=== PATIENT | female | born 1950 | race Caucasian/White ===

== ENCOUNTER 2020-03-17 09:15 | Emergency (ER) | payer OTHER, SELFPAY ==
[2020-03-17 09:24] VITALS: BP 156/87; PULSE 108; RESP 18; TEMP 36.6; O2SAT 95; BMI 30.9
--- NOTE | 2020-03-17 09:25 | CT_ITS ---
EXAMINATION: CT abdomen pelvis w con CLINICAL INFORMATION: Reason for Exam L flank pain, LLQ pain COMPARISON: No prior CT available for comparison. TECHNIQUE: Multidetector volumetric imaging was performed from the superior aspect of the liver through the pubic symphysis 85 mL Omnipaque 350 injected. Sagittal and coronal reformatted images were obtained on the technologist's workstation. This CT examination was performed using dose optimization techniques as appropriate, variously including the following: *Automated exposure control *Adjustment of mA and/or kV according to patient size (this includes techniques or standardized protocols for targeted exams where dose is matched to indication/reason for exam; i.e. extremities or head) *Use of iterative reconstruction technique DLP: 742 mGy-cm FINDINGS: LOWER THORAX: Included lung bases are clear. HEPATOBILIARY: No focal hepatic lesions. No biliary ductal dilatation. GALLBLADDER: There are small gallstones. SPLEEN: Spleen is normal in size. PANCREAS: No focal mass or ductal dilatation. STOMACH AND GASTROINTESTINAL TRACT: Stomach is grossly unremarkable. There is sigmoid diverticulosis without CT evidence of acute diverticulitis. No CT evidence of appendicitis. There is soft tissue opacity protruding from the posterior wall of the distal rectum measure up to 1.8 cm, although could be adherent stool, cannot rule out rectal lesion. This may require further investigation with colonoscopy. ADRENALS: No adrenal nodules. KIDNEYS/URETERS: Mild bilateral perinephric fat stranding, nonspecific, cannot rule out mild nephritis, there is a 5 mm nonobstructing stone upper calyx left kidney. There is no hydronephrosis. URINARY BLADDER: There is air bubble floating within the urinary bladder, which could be from prior instrumentation versus gas forming bacteria. I.e. cystitis. PELVIC VISCERA: Unremarkable PERITONEUM: No free air or fluid. LYMPH NODES: No lymphadenopathy. VASCULAR:Abdominal aorta is heavily calcified, there is saccular annular bulge measuring 2.6 cm. BONES, ABDOMINAL WALL AND SOFT TISSUES: Age-appropriate changes of the spine and skeletal system, no destructive osteolytic or osteosclerotic bone lesion found CT/CT abdomen pelvis w con IMPRESSION: 1. Bilateral mild perinephric fat stranding although nonspecific, cannot rule out mild nephritis. 2. There is 5 mm nonobstructing stone left kidney. 3. There is a floating air bubble within the urinary bladder, which could be from prior instrumentation, there is mild thickening of the urinary bladder wall, cannot rule out gas forming bacteria cystitis. Please correlate with patient's clinical symptoms and laboratory data. 4. Diverticulosis without evidence of diverticulitis. 5. Gallstone. 6. 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 7. There is soft tissue filling defect within the distal rectum abutting the posterior wall concerning for possible impacted adherent stool VERSUS RECTAL LESION. Attention to correlation with RECTAL DIGITAL EXAM OR SIGMOIDOSCOPY. (Referring physician staff is being called, to be alerted of the above findings and recommendations.) TC
--- NOTE | 2020-03-17 09:25 | ECG_ITS ---
Test Reason : SIDE PAIN Blood Pressure : / mmHG Vent. Rate : 073 BPM Atrial Rate : 073 BPM P-R Int : 154 ms QRS Dur : 084 ms QT Int : 440 ms P-R-T Axes : 073 088 067 degrees QTc Int : 484 ms Normal sinus rhythm Possible Left atrial enlargement Borderline ECG No previous ECGs available Referred By: Maria Guadalupe Longo Electronically Signed By:Lee Richardson
--- NOTE | 2020-03-17 09:26 | ED.ABDPAIN ---
HPI - Abdominal Pain General Chief Complaint: Abdominal Pain Stated Complaint: BODY PAIN Time Seen by Provider: 03/17/20 09:25 Source: patient Mode of arrival: ambulatory Limitations: no limitations History of Present Illness MD elicited complaint: abdominal pain and flank pain Pertinent past history: kidney stones Onset (ago): day(s) (3) Pain Consistency: constant Location: LLQ, L flank and other (back) Severity: moderate Quality: stabbing and aching Radiation: LLQ Migration to: no migration Exacerbating factors: movement Relieving factors: nothing Context: other (no injury reported, no b/b incontinence, no saddle anesthesia) Associated symptoms: nausea Related Data Previous Rx's Medication Instructions Recorded cefuroxime axetil 500 mg PO BID 7 Days #14 tab 03/17/20 cyclobenzaprine 10 mg PO TID PRN #20 tab 03/17/20 hydrocodone-acetaminophen 1 tab PO Q6H PRN #15 tab 03/17/20 lidocaine 1 patch TOPICAL DAILY PRN #10 ea 03/17/20 ondansetron 4 mg PO Q8H PRN #20 tab 03/17/20 Allergies Allergy/AdvReac Type Severity Reaction Status Date / Time No Known Allergies Allergy Verified 03/17/20 09:25 Review of Systems Review of Systems Constitutional : No Weight loss, No Fever, No Chills ENT/Mouth : No sore throat, No Rhinorrhea Eyes: No Swelling, No Redness Cardiovascular : No Chest Pain, No SOB, NoEdema Respiratory : No Cough, No Sputum, No Wheezing Gastrointestinal : Positive Nausea, no Vomiting, no Diarrhea, positive abdominal Pain, No Hematochezia, No Melena Genitourinary : pos Dysuria, No Urinary Frequency, No Hematuria, No Urgency Musculoskeletal : No joint pain, No Myalgias, No Joint Swelling Skin : No Skin Lesions, No rash Neuro : No Weakness, No Numbness, No Dizziness, No Headache Psych : No Anxiety/Panic, No Depression Heme/Lymph: No Bruising, No Lymphadenopathy Endocrine : No Polyuria, No Polydipsia All other systems reviewed and are negative. Physical Exam Vital Signs: Vital Signs: Last Vital Signs Temp 97.6 F 03/17/20 11:50 Pulse 69 03/17/20 11:50 Resp 16 03/17/20 11:50 BP 131/70 03/17/20 11:50 Pulse Ox 97 03/17/20 11:50 Body Mass Index 30.9 Appearance: Alert. Oriented X3. No acute distress. Eyes: Pupils equal, round and reactive to light. ENT: Pharynx normal. Neck: Normal inspection. Neck supple. CVS: Normal heart rate and rhythm. Pulses normal. Respiratory: No respiratory distress. Breath sounds normal. Abdomen: Soft and mild LLQ pain, L flank CVA ttp, no rebound or guarding Skin: Skin warm and dry. Normal skin color. Normal skin turgor. Extremities: No lower extremity edema. No calf ttp Neuro: Oriented X 3. No motor deficit. No sensory deficit. SILT inner thigh MDM - Abdominal Pain MDM Narrative Medical decision making narrative: 70 yo female with HTN, HPL, kidney stones, sciatica here with left flank pain radiating into LLQ has been in bed for days - could be sciatica has no b/b incontinence no saddle anesthesia no AC therapy SILT inner thigh will need labs, UA, IV pain medications, CT scan to evaluate for stone/diverticulitis, IV dilaudid for pain dispo per results and findings. Lab Data Result diagrams: 03/17/20 09:37 03/17/20 09:37 Labs: Lab Results 03/17/20 03/17/20 03/17/20 Range/Units 09:37 09:37 09:37 WBC 7.9 (4.8-10.8) X10*3/uL RBC 5.28 (4.20-5.50) X10*6/uL Hgb 16.1 H (12.0-16.0) g/dl Hct 47.8 H (37-47) % MCV 90.5 (80-98) fL MCH 30.5 (27.0-33.0) pg MCHC 33.7 (31.0-35.0) g/dl RDW 12.8 (11.0-16.0) % Plt Count 248 (160-400) X10*3/uL MPV 9.2 L (9.4-12.3) fL Immature Gran % (Auto) 0.3 (0.0-0.4) % Neut % (Auto) 77.2 H (45-73) % Lymph % (Auto) 13.9 L (20-40) % [place] % (Auto) 7.0 (2-11) % Eos % (Auto) 1.0 (0-4) % Baso % (Auto) 0.6 (0-2) % Lymph # (Auto) 1.1 L (1.2-4.9) X10*3/uL [place] # (Auto) 0.6 (0.1-1.2) X10*3/uL Eos # (Auto) 0.1 (0.0-0.4) X10*3/uL Baso # (Auto) 0.1 (0.0-0.2) X10*3/uL Abs Immat Gran (auto) 0.02 (0.00-0.03) X10*3/uL Absolute Neuts (auto) 6.1 (2.0-8.3) X10*3/uL Absolute Nucleated RBC 0.000 (0.0-0.012) X10*3/uL Nucleated RBC % (auto) 0.0 (0.0-0.2) /100WBC PT 11.8 (10.8-13.0) SEC INR 1.0 (0.9-1.1) APTT 32.2 (24.1-38.0) SEC Sodium 136 (135-145) mmol/L Potassium 3.9 (3.3-5.1) mmol/l Chloride 101 (96-108) mmol/L Carbon Dioxide 23 (22-29) mmol/L Anion Gap 16 (12-20) BUN 16 (9-16) mg/dL Creatinine 0.80 (0.5-1.4) mg/dL Estim Creat Clear Calc 66.6 Estimated GFR > 60 Random Glucose 161 H (60-115) mg/dL Lactic Acid (0.5-2.0) mmol/L Calcium 9.7 (8.4-10.2) mg/dL Magnesium 1.7 (1.6-2.6) mg/dL Total Bilirubin 0.6 (0.0-1.0) mg/dL Direct Bilirubin 0.2 (0.0-0.5) mg/dL AST 32 H (5-31) U/L ALT 29 (0-31) U/L Alkaline Phosphatase 76 (39-117) U/L Total Protein 7.9 (6.5-8.0) g/dL Albumin 4.5 (3.5-5.0) g/dL Lipase 19 (8-78) U/L Urine Color Urine Appearance Urine pH (5.0-8.0) Ur Specific [place] (1.005-1.025) Urine Protein (NEG-TRACE) MG/DL Urine Glucose (UA) (NEG) MG/DL Urine Ketones (NEG) MG/DL Urine Blood (NEG) Urine Nitrite (NEG) Ur Leukocyte Esterase (NEG) 03/17/20 03/17/20 Range/Units 09:37 13:19 WBC (4.8-10.8) X10*3/uL RBC (4.20-5.50) X10*6/uL Hgb (12.0-16.0) g/dl Hct (37-47) % MCV (80-98) fL MCH (27.0-33.0) pg MCHC (31.0-35.0) g/dl RDW (11.0-16.0) % Plt Count (160-400) X10*3/uL MPV (9.4-12.3) fL Immature Gran % (Auto) (0.0-0.4) % Neut % (Auto) (45-73) % Lymph % (Auto) (20-40) % [place] % (Auto) (2-11) % Eos % (Auto) (0-4) % Baso % (Auto) (0-2) % Lymph # (Auto) (1.2-4.9) X10*3/uL [place] # (Auto) (0.1-1.2) X10*3/uL Eos # (Auto) (0.0-0.4) X10*3/uL Baso # (Auto) (0.0-0.2) X10*3/uL Abs Immat Gran (auto) (0.00-0.03) X10*3/uL Absolute Neuts (auto) (2.0-8.3) X10*3/uL Absolute Nucleated RBC (0.0-0.012) X10*3/uL Nucleated RBC % (auto) (0.0-0.2) /100WBC PT (10.8-13.0) SEC INR (0.9-1.1) APTT (24.1-38.0) SEC Sodium (135-145) mmol/L Potassium (3.3-5.1) mmol/l Chloride (96-108) mmol/L Carbon Dioxide (22-29) mmol/L Anion Gap (12-20) BUN (9-16) mg/dL Creatinine (0.5-1.4) mg/dL Estim Creat Clear Calc Estimated GFR Random Glucose (60-115) mg/dL Lactic Acid 2.0 (0.5-2.0) mmol/L Calcium (8.4-10.2) mg/dL Magnesium (1.6-2.6) mg/dL Total Bilirubin (0.0-1.0) mg/dL Direct Bilirubin (0.0-0.5) mg/dL AST (5-31) U/L ALT (0-31) U/L Alkaline Phosphatase (39-117) U/L Total Protein (6.5-8.0) g/dL Albumin (3.5-5.0) g/dL Lipase (8-78) U/L Urine Color YELLOW Urine Appearance CLEAR Urine pH 6.5 (5.0-8.0) Ur Specific [place] <= 1.005 (1.005-1.025) Urine Protein NEG (NEG-TRACE) MG/DL Urine Glucose (UA) NEG (NEG) MG/DL Urine Ketones NEG (NEG) MG/DL Urine Blood NEG (NEG) Urine Nitrite NEG (NEG) Ur Leukocyte Esterase NEG (NEG) ECG Data Attestation: I personally reviewed and interpreted this ECG as follows: ECG interpretation date: 03/17/20 ECG interpretation time: 10:06 Interpretation: Rate: 73 Rhythm: NSR [place]: normal Normal P waves. Normal YAIMA. Normal QRS complex. ST T wave : normal , no ANNA qTC: normal prior studies: no acute ischemia The study has been interpreted contemporaneously by me. . Discharge Plan Discharge Clinical Impression: Cystitis, Acute left flank pain Patient Disposition: Home, Self-Care Instructions: Urinary Tract Infection in Women (ED), Flank Pain (ED) Additional Instructions: return to ED for any worsening symptoms or concerns CT SCAN OF ABDOMEN 1. Bilateral mild perinephric fat stranding although nonspecific, cannot rule out mild nephritis. 2. There is 5 mm nonobstructing stone left kidney. 3. There is a floating air bubble within the urinary bladder, which could be from prior instrumentation, there is mild thickening of the urinary bladder wall, cannot rule out gas forming bacteria cystitis. Please correlate with patient's clinical symptoms and laboratory data. TREATED INFECTION 4. Diverticulosis without evidence of diverticulitis. 5. Gallstone. 6. 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 7. There is soft tissue filling defect within the distal rectum abutting the posterior wall concerning for possible impacted adherent stool VERSUS RECTAL LESION. Attention to correlation with RECTAL DIGITAL EXAM OR SIGMOIDOSCOPY. YOU NEED TO CALL YOUR DOCTOR AND HAVE A COLONOSCOPY DONE Prescriptions: New cyclobenzaprine 10 mg tablet 10 mg PO TID PRN (Reason: muscle spasm) Qty: 20 RF: 0 lidocaine 4 % adhesive patch,medicated 1 patch topical DAILY PRN (Reason: pain) Qty: 10 RF: 0 hydrocodone-acetaminophen 5-325 mg tablet 1 tab PO Q6H PRN (Reason: pain) Qty: 15 RF: 0 ondansetron 4 mg tablet,disintegrating 4 mg PO Q8H PRN (Reason: nausea and vomiting) Qty: 20 RF: 0 cefuroxime axetil 500 mg tablet 500 mg PO BID 7 Days Qty: 14 RF: 0 Referrals: Evelyn Chamberlain MD [Primary Care Provider] - 2 days (call Thursday your CT scan has findings on it that require close outpatient follow up) [facility] Past Medical History Attestation statement: The following information was validated with the patient. Medical History Anxiety HTN (hypertension) Hyperlipidemia Kidney stones Social History Social History Alcohol intake: current Alcohol intake frequency: 3 or more drinks per day Smoking Status: Current every day smoker Use of substances other than those prescribed or required for medical reasons: No Advance Directives: No Advance Directives Information Provided: Yes
[2020-03-17 09:43] LABS: MANUAL DIFF FLAG NO
[2020-03-17 09:44] LABS: Basophils Absolute Auto 0.1 X10*3/uL (0.0-0.2); Basophils Percent Auto 0.6 % (0-2); Eosinophils Absolute Auto 0.1 X10*3/uL (0.0-0.4); Hematocrit 47.8 % (37-47); Hemoglobin 16.1 g/dl (12.0-16.0); Imm Gran Abs Auto 0.02 X10*3/uL (0.00-0.03); Imm Gran Pct Auto 0.3 % (0.0-0.4); Lymphocytes Absolute Auto 1.1 X10*3/uL (1.2-4.9); Lymphocytes Percent Auto 13.9 % (20-40); Mean Corpuscular HGB Conc 33.7 g/dl (31.0-35.0); Mean Corpuscular Hemoglobin 30.5 pg (27.0-33.0); Mean Corpuscular Volume 90.5 fL (80-98); Mean Platelet Volume 9.2 fL (9.4-12.3); Monocytes Absolute Auto 0.6 X10*3/uL (0.1-1.2); Neutrophils Absolute Auto 6.1 X10*3/uL (2.0-8.3); Neutrophils Percent Auto 77.2 % (45-73); Platelet Count 248 X10*3/uL (160-400); Red Blood Count 5.28 X10*6/uL (4.20-5.50); Red Cell Distribution Width 12.8 % (11.0-16.0); White Blood Count 7.9 X10*3/uL (4.8-10.8)
[2020-03-17] MEDS: 0.9 % Sodium Chloride 1,000 ML 999 ML IVCONT (09:45)
[2020-03-17] MEDS: LORazepam 2 MG/ML VIAL 0.5 MG IVPUSH (09:46)
[2020-03-17] MEDS: HYDROmorphone HCl 0.5 MG/0.5 ML SYRINGE IVPUSH (09:46)
[2020-03-17] MEDS: ondansetron HCL 4 MG/2 ML VIAL IVPUSH (09:46)
[2020-03-17 10:07] LABS: Alanine Aminotransferase 29 U/L (0-31); Albumin Level 4.5 g/dL (3.5-5.0); Alkaline Phosphatase 76 U/L (39-117); Aspartate Amino Transferase 32 U/L (5-31); Bilirubin Direct 0.2 mg/dL (0.0-0.5); Bilirubin Total 0.6 mg/dL (0.0-1.0); Lipase 19 U/L (8-78); Magnesium 1.7 mg/dL (1.6-2.6); Total Protein 7.9 g/dL (6.5-8.0)
[2020-03-17 10:11] LABS: Prothrombin Time 11.8 SEC (10.8-13.0)
[2020-03-17 10:14] VITALS: BP 138/67
[2020-03-17 10:14] LABS: Partial Thromboplastin Time 32.2 SEC (24.1-38.0)
[2020-03-17 11:11] LABS: Anion Gap 16 (12-20); Blood Urea Nitrogen 16 mg/dL (9-16); Calcium 9.7 mg/dL (8.4-10.2); Carbon Dioxide 23 mmol/L (22-29); Chloride 101 mmol/L (96-108); Creatinine Clr Calc Pharmacy 66.6; Estimated Glomerular Filt Rate > 60; Glucose Random 161 mg/dL (60-115); Potassium 3.9 mmol/l (3.3-5.1); Sodium 136 mmol/L (135-145)
--- NOTE | 2020-03-17 11:28 | PC.NURSE ---
pt ambulated to CT with steady gait.
[2020-03-17] MEDS: iohexoL 350 MG/ML 100 ML INFUS..BTL 85 ML IV (11:47)
[2020-03-17 11:50] VITALS: BP 131/70; PULSE 69; RESP 16; TEMP 36.4; O2SAT 97
[2020-03-17 13:24] LABS: Glucose Urine UA NEG (NEG); Leukocyte Esterase Urine NEG (NEG); Nitrite Urine NEG (NEG); PH 6.5 (5.0-8.0); Specific Gravity - Urine <= 1.005 (1.005-1.025); Urine Blood NEG (NEG); Urine Ketones NEG (NEG); Urine Protein NEG (NEG-TRACE)
[2020-03-17 13:26] LABS: Appearance Urine CLEAR; Color Urine YELLOW
[2020-03-17] MEDS: cefTRIAXone sodium 1 GM in 0.9 % Sodium Chloride 50 ML IV (13:41)
== END 2020-03-17 14:16 | disposition home or self-care (01) ==
PROVIDERS: Emergency Provider Emergency Medicine; PCP Internal Medicine
DX: R10.9 Unspecified abdominal pain (principal); N39.0 Urinary tract infection, site not specified; N20.0 Calculus of kidney; R93.5 Abnormal findings on diagnostic imaging of other abdominal regions, including retroperitoneum; I10 Essential (primary) hypertension; E78.5 Hyperlipidemia, unspecified; Z87.442 Personal history of urinary calculi
CPT/HCPCS: 36415; 74177; 80048; 80076; 81003; 83605; 83690; 83735; 85025; 85610; 85730; 93005; 96361; 96365; 96375; 99284; J0696; J1170; J2060; J2405; Q9967

== ENCOUNTER 2023-08-07 10:30 | Emergency (ER) | payer OTHER, SELFPAY ==
--- NOTE | ~2023-08-07 | XR_ITS ---
X-RAY LEFT SHOULDER AND LEFT HUMERUS CLINICAL HISTORY: Pain, fall. COMPARISON: No relevant prior studies are available for comparison. TECHNIQUE: 3 views of the left shoulder and 2 views of the left humerus. FINDINGS: Comminuted, displaced and impacted fracture of the proximal left humeral shaft. The distal fragment is displaced by greater than one shaft width and superiorly impacted by approximately 9.5 cm. There is surrounding soft tissue swelling and a joint effusion in the left shoulder. No additional fractures are seen. XR/XR shoulder LT min 2V IMPRESSION: Comminuted, displaced and impacted fracture of the proximal left humeral shaft.
--- NOTE | ~2023-08-07 | CT_ITS ---
EXAMINATION: CT CERVICAL SPINE WITHOUT CONTRAST CLINICAL INFORMATION: Mechanical fall, neck injury and pain COMPARISON: None available. TECHNIQUE: Multiple 3.0 and 0.6 mm axial images were obtained from base of skull to T1 levels without IV contrast enhancement. Sagittal and coronal 2.0 mm bone window images were reconstructed from axial image data. This CT examination was performed using dose optimization techniques as appropriate, variously including the following: *Automated exposure control *Adjustment of mA and/or kV according to patient size (this includes techniques or standardized protocols for targeted exams where dose is matched to indication/reason for exam; i.e. extremities or head) *Use of iterative reconstruction technique DLP: 1427.69 mGy-cm FINDINGS: There is straightening of cervical lordosis. C1/C2: Bony structures are intact with normal alignment. There is no spinal stenosis. C2/C3: Bony structures are intact with normal alignment. There is no spinal stenosis. There is mild asymmetric left C2/C3 neuroforaminal stenosis. Bilateral apophyseal joints are intact with normal alignment. There is bony ankylosis of the left C2-C3 apophyseal joints. C3/C4: Bony structures are intact with normal alignment. There is no spinal stenosis. Bilateral C3/C4 neuroforamina are patent. Bilateral apophyseal joints are intact with normal alignment. C4/C5: Bony structures are intact with normal alignment. There is no spinal stenosis. There is marked asymmetric right C4/C5 neuroforaminal stenosis. Bilateral apophyseal joints are intact with normal alignment. C5/C6: Bony structures are intact with normal alignment. There is no spinal stenosis. Bilateral C5/C6 neuroforamina are patent. Bilateral apophyseal joints are intact with normal alignment. C6/C7: Bony structures are intact with normal alignment. There is no spinal stenosis. Bilateral C6/C7 neuroforamina are patent. Bilateral apophyseal joints are intact with normal alignment. C7/T1: Bony structures are intact with normal alignment. There is no spinal stenosis. Bilateral C7/T1 neuroforamina are patent. Bilateral apophyseal joints are intact with normal alignment. Multilevel bilateral apophyseal joint and uncovertebral joint osteoarthritis with loss of joint space, sclerosis, facet hypertrophy and osteophytosis are seen. Cluster of posterior subpleural paraseptal emphysematous bullae are seen in right lung apex. A small fibrotic scar is seen in posterior pleural border of left lung apex. CT/CT cervical spine wo IV con IMPRESSION: 1. No evidence of acute fracture or dislocation in the cervical spine. 2. Multilevel advanced cervical spondylosis as described above. 3. Cluster of posterior subpleural paraseptal emphysematous bullae in right lung apex.
--- NOTE | ~2023-08-07 | XR_ITS ---
X-RAY LEFT SHOULDER AND LEFT HUMERUS CLINICAL HISTORY: Pain, fall. COMPARISON: No relevant prior studies are available for comparison. TECHNIQUE: 3 views of the left shoulder and 2 views of the left humerus. FINDINGS: Comminuted, displaced and impacted fracture of the proximal left humeral shaft. The distal fragment is displaced by greater than one shaft width and superiorly impacted by approximately 9.5 cm. There is surrounding soft tissue swelling and a joint effusion in the left shoulder. No additional fractures are seen. XR/XR humerus LT IMPRESSION: Comminuted, displaced and impacted fracture of the proximal left humeral shaft.
--- NOTE | ~2023-08-07 | CT_ITS ---
EXAMINATION: CT HEAD WITHOUT CONTRAST CLINICAL INFORMATION: Mechanical fall, Blunt head trauma without loss of consciousness, significant head injury and posttraumatic headache. COMPARISON: None available. TECHNIQUE: Contiguous axial imaging was performed from the skull base to vertex without intravenous administration of contrast. This CT examination was performed using dose optimization techniques as appropriate, variously including the following: *Automated exposure control *Adjustment of mA and/or kV according to patient size (this includes techniques or standardized protocols for targeted exams where dose is matched to indication/reason for exam; i.e. extremities or head) *Use of iterative reconstruction technique DLP: 880 mGy-cm FINDINGS: Ventricles, sulci and cisterns are dilated. Bilateral frontal periventricular white matter shows abnormal decrease in attenuation. There is no midline shift, no abnormal intra- or extra- axial fluid accumulation. [place] and white matter differentiation is normal. Bone window images show no evidence of skull fracture. CT/CT head/brain wo IV con IMPRESSION: 1. 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 2. No intracranial hemorrhage or skull fracture is seen. 3. No evidence of space occupying lesion could be found. 4. The current plain CT scan of the brain shows no diagnostic evidence of acute cerebral infarction.
[2023-08-07 10:56] VITALS: BP 149/61; PULSE 110; RESP 18; TEMP 36.4; O2SAT 94; BMI 29.4
--- NOTE | 2023-08-07 10:58 | ED.GENADULT ---
HPI - General Adult General Chief complaint: Fall Stated complaint: fall , L shoulder inj Time Seen by Provider: 08/07/23 11:57 Source: patient and family (patient's daughter) Mode of arrival: ambulatory Limitations: no limitations History of Present Illness HPI narrative: Patient is a 73 year old assigned female at with a history of tobacco use presenting to the emergency department today with left shoulder/arm pain after a trip and fall. Patient states that last night she tripped and fell in her kitchen, landed on her left arm. Patient denies any head strike or loss of consciousness. Patient denies any dizziness, lightheadedness, abdominal pain, nausea, vomiting, fever, chills, blurry vision, double vision, loss of vision, chest pain, difficulty breathing, shortness of breath, back pain, night sweats, pain with urination, increased urinary frequency, increased urinary urgency, blood in her urine or stool, syncope or a near syncopal episode, bowel incontinence, bladder incontinence, bowel retention, bladder retention, or any other complaints at this time. Onset (ago): day(s) (1) Location: left and upper extremity Radiation: non-radiation Severity: moderate Severity scale (1-10): 5 Quality: aching and dull Pain Consistency: constant Relieving factors: immobilization Exacerbating factors: movement Associated symptoms: denies other symptoms Treatments prior to arrival: none Related Data Previous Rx's ?Medication ?Instructions ?Recorded cefuroxime axetil 500 mg tablet 500 mg PO BID 7 days #14 tabs 03/17/20 cyclobenzaprine 10 mg tablet 10 mg PO TID PRN muscle spasm #20 03/17/20 tabs hydrocodone 5 mg-acetaminophen 325 1 tab PO Q6H PRN pain #15 tabs 03/17/20 mg tablet lidocaine 4 % topical patch 1 patch topical DAILY PRN pain #10 03/17/20 ea ondansetron 4 mg disintegrating 4 mg PO Q8H PRN nausea and 03/17/20 tablet vomiting #20 tabs Allergies Allergy/AdvReac Type Severity Reaction Status Date / Time No Known Allergies Allergy Verified 08/07/23 10:59 Review of Systems Constitutional: Constitutional: Reports no additional constitutional complaints, Denies chills, Denies fever(s) and Denies night sweats Eyes: Eyes: Reports no additional eye complaints, Denies blurry vision, Denies change in vision, Denies diplopia, Denies eye discharge, Denies loss of vision and Denies eye pain ENT: Denies dizziness Cardiovascular: Cardiovascular: Reports no additional cardiovascular complaints, Denies chest pain, Denies lightheadedness, Denies Loss of Consciousness and Denies dyspnea Respiratory: Respiratory: Reports no additional respiratory complaints and Denies dyspnea Gastrointestinal: Gastrointestinal: Reports no additional gastrointestinal complaints, Denies abdominal pain, Denies melena, Denies hematochezia, Denies change in bowel habits and Denies change in stool character Genitourinary: Genitourinary: Denies hematuria, Denies urinary frequency, Denies dysuria, Denies urinary incontinence, Denies urinary hesitancy and Denies urinary urgency Musculoskeletal: Musculoskeletal: Reports no additional musculoskeletal complaints, Denies numbness and Denies tingling Comments: LUE pain Neurologic: Denies dizziness, Denies loss of vision, Denies numbness and Denies tingling Psychiatric: Psychiatric: Reports no additional psychiatric complaints Endocrine: Endocrine: Reports no additional endocrine complaints Hematologic/Lymphatic: Hematologic/Lymphatic: Reports no additional hematologic/lymphatic complaints Allergic/Immunologic: Allergic/Immunologic: Reports no additional allergic/immunologic complaints PMF Past Medical History Attestation statement: The following information was validated with the patient. (all information was validated by the patient's daughter) Source: old records reviewed, obtained from family (patient's daughter provided additional history and confirmed the history provided by the patient.) and nursing notes reviewed Medical History Hyperlipidemia HTN (hypertension) Kidney stones Anxiety Social History Social History Alcohol intake: current Alcohol intake frequency: does not drink Smoked in Last 30 Days: No Advance Directives: No Advance Directives Information Provided: No Physical Exam ED Vital Signs: Vital Signs - 24 hr 08/07/23 10:56 08/07/23 14:28 08/07/23 14:37 Temperature 97.5 F 98.6 F 98.6 F Pulse Rate 110 H 86 86 Respiratory Rate 18 12 14 Blood Pressure 149/61 H 149/60 H 149/60 H Pulse Oximetry 94 96 96 Oxygen Delivery Method Room Air Room Air Room Air BMI result Body Mass Index 29.4 Const General: cooperative, no acute distress, alert and awake Nutritional Appearance: well nourished Orientation/consciousness: patient oriented x3 Limitations: no limitations HENMT Head: Yes normal to inspection and Yes atraumatic Ears: hearing grossly normal bilaterally and external ears normal General nose exam: Normal external nose present, no nasal discharge noted and no epistaxis Face and sinus: Yes normal facial exam, No abrasion and No laceration Mouth: Normal oral and palatal mucosa present, no drooling and no muffled voice Eyes General: appearance normal, both eyes and all related structures Periorbital: periorbital findings normal Eyelids: Yes eyelids normal Conjunctivae: conjunctivae normal Pupils: Equal, round and reactive pupils present EOM: EOMs intact bilaterally Neck Neck: Yes normal visual inspection, Yes full ROM and Yes no lymphadenopathy Chest Chest palpation & inspection: normal inspection of the chest Resp Effort & Inspection: normal respiratory effort and able to speak in complete sentences GI Inspection: Yes normal to inspection Neuro General: patient oriented x3 and moves all extremities Cranial nerves: Yes Equal, round and reactive pupils present Cognition (Neuro): normal cognition Motor exam (neuro): 5/5 motor strength present throughout Sensory Exam: Normal double simultaneous stimulation for sensation Coordination: [id number] test normal Extrem Other: bruising present to the medial aspect of the left upper extremity - decreased ROM of the left shoulder secondary to pain General: Yes capillary refill normal Psych Appearance: grossly normal Mental Status: mental status grossly normal Affect: normal affect Attitude: cooperative Thought process: Normal thought process present Thought content: Normal thought content present Insight: Good insight present (Psych) Course Course Course Narrative: This is a rapid medical exam performed by Roberto Sullivan NP: Additional HPI, ROS, PE not included below will be deferred to primary provider. Patient is a 73-year-old female presenting to the emergency department with complaint of left upper arm pain and bruising. States she tripped and fell last night. Denies head strike or loss of consciousness. Not anticoagulated. Tenderness and ecchymosis to anterior and medial upper arm with 2+ radial pulse on left. Plan: x-rays Medications Administered Discontinued Medications Generic Name Dose Route Start Last Admin Trade Name Freq PRN Reason Stop Dose Admin Meclizine HCl 25 mg 08/07/23 12:04 08/07/23 12:16 Meclizine Hcl 25 Mg Tablet PO 08/07/23 12:05 25 mg ONCE ONE Administration Oxycodone HCl 10 mg 08/07/23 12:04 08/07/23 12:16 Oxycodone Hcl Immed Release 5 Mg Tablet PO 08/07/23 12:05 10 mg ONCE ONE Administration Procedures Orthopedic Splinting/Casting Injury #1: Side: left Upper Extremity Injury Location: shoulder Upper Extremity Immobilizer: sling/shoulder immobilizer Smoking Cessation Time Spent Discussing Smoking Cessation w/Patient (min): 4 Patient Acknowledges Need for Cessation: Yes Additional Comments: Patient stated that she has tried to cut back on her tobacco use. Medical Decision Making Medical Decision Making MDM Narrative: Patient is a 73 year old assigned female at with a history of tobacco use presenting to the emergency department today with left shoulder pain after a trip and fall. Patient's physical exam was as noted in the physical exam portion of this note. Patient's left shoulder / humerus x-rays showed a comminuted, displaced, and impacted fracture of the proximal left humeral shaft. Patient's head CT showed no acute process. Patient's CT c-spine showed a cluster of posterior subpleural paraseptal emphysematous bullae in the right lung apex. I spoke to the orthopedic team who recommended putting the patient in a sling and having her follow up with them outpatient. I explained my physical exam findings as well as all test results to the patient and the patient's daughter. I answered all questions asked by the patient and the patient's daughter. I stressed the importance of the patient taking her medication as prescribed. I stressed the importance of the patient following up with her primary care provider and an orthopedic provider. I stressed the importance of the patient returning to the emergency department immediately if her symptoms were to worsen or if she were to develop any dizziness, shortness of breath, difficulty breathing, chest pain, blurry vision, loss of vision, nausea, vomiting, abdominal pain, fever, chills, back pain, or any other complaints. Patient and the patient's daughter verbalized agreement and understanding with this treatment plan and discharge. Differential Diagnosis Differential Diagnoses: The differential diagnosis associated with the presentation includes Left humeral fracture Fall Shoulder fx Admission/Observation Consideration of admission/observation: Escalation of care including admission/observation considered Patient would have been admitted to the hospital had her work up had any findings where hospital admission was appropriate and her clinical presentation warranted hospital admission. Consult Healthcare Provider Management of the patient was discussed with: Freight Delivery Driver (spoke to the orthopedic team as noted in the MDM Rationale portion of this note) Independent Interpretation I performed an independent interpretation of an: Plain X-Ray and CT Scan Interpretation: My interpretation is in agreement with the radiologist's impression of these imaging studies. EXAMINATION: CT HEAD WITHOUT CONTRAST CLINICAL INFORMATION: Mechanical fall, Blunt head trauma without loss of consciousness, significant head injury and posttraumatic headache. COMPARISON: None available. TECHNIQUE: Contiguous axial imaging was performed from the skull base to vertex without intravenous administration of contrast. This CT examination was performed using dose optimization techniques as appropriate, variously including the following: *Automated exposure control *Adjustment of mA and/or kV according to patient size (this includes techniques or standardized protocols for targeted exams where dose is matched to indication/reason for exam; i.e. extremities or head) *Use of iterative reconstruction technique DLP: 880 mGy-cm FINDINGS: Ventricles, sulci and cisterns are dilated. Bilateral frontal periventricular white matter shows abnormal decrease in attenuation. There is no midline shift, no abnormal intra- or extra- axial fluid accumulation. [place] and white matter differentiation is normal. Bone window images show no evidence of skull fracture. CT/CT head/brain wo IV con IMPRESSION: 1. 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 2. No intracranial hemorrhage or skull fracture is seen. 3. No evidence of space occupying lesion could be found. 4. The current plain CT scan of the brain shows no diagnostic evidence of acute cerebral infarction. Dictated By: Kunal Laughlin Signed By: Electronically signed by Kunal Laughlin 08/07/23 1349 EXAMINATION: CT CERVICAL SPINE WITHOUT CONTRAST CLINICAL INFORMATION: Mechanical fall, neck injury and pain COMPARISON: None available. TECHNIQUE: Multiple 3.0 and 0.6 mm axial images were obtained from base of skull to T1 levels without IV contrast enhancement. Sagittal and coronal 2.0 mm bone window images were reconstructed from axial image data. This CT examination was performed using dose optimization techniques as appropriate, variously including the following: *Automated exposure control *Adjustment of mA and/or kV according to patient size (this includes techniques or standardized protocols for targeted exams where dose is matched to indication/reason for exam; i.e. extremities or head) *Use of iterative reconstruction technique DLP: 1427.69 mGy-cm FINDINGS: There is straightening of cervical lordosis. C1/C2: Bony structures are intact with normal alignment. There is no spinal stenosis. C2/C3: Bony structures are intact with normal alignment. There is no spinal stenosis. There is mild asymmetric left C2/C3 neuroforaminal stenosis. Bilateral apophyseal joints are intact with normal alignment. There is bony ankylosis of the left C2-C3 apophyseal joints. C3/C4: Bony structures are intact with normal alignment. There is no spinal stenosis. Bilateral C3/C4 neuroforamina are patent. Bilateral apophyseal joints are intact with normal alignment. C4/C5: Bony structures are intact with normal alignment. There is no spinal stenosis. There is marked asymmetric right C4/C5 neuroforaminal stenosis. Bilateral apophyseal joints are intact with normal alignment. C5/C6: Bony structures are intact with normal alignment. There is no spinal stenosis. Bilateral C5/C6 neuroforamina are patent. Bilateral apophyseal joints are intact with normal alignment. C6/C7: Bony structures are intact with normal alignment. There is no spinal stenosis. Bilateral C6/C7 neuroforamina are patent. Bilateral apophyseal joints are intact with normal alignment. C7/T1: Bony structures are intact with normal alignment. There is no spinal stenosis. Bilateral C7/T1 neuroforamina are patent. Bilateral apophyseal joints are intact with normal alignment. Multilevel bilateral apophyseal joint and uncovertebral joint osteoarthritis with loss of joint space, sclerosis, facet hypertrophy and osteophytosis are seen. Cluster of posterior subpleural paraseptal emphysematous bullae are seen in right lung apex. A small fibrotic scar is seen in posterior pleural border of left lung apex. CT/CT cervical spine wo IV con IMPRESSION: 1. No evidence of acute fracture or dislocation in the cervical spine. 2. Multilevel advanced cervical spondylosis as described above. 3. Cluster of posterior subpleural paraseptal emphysematous bullae in right lung apex. Dictated By: Kunal Laughlin Signed By Electronically signed by Kunal Laughlin 08/07/23 1401 X-RAY LEFT SHOULDER AND LEFT HUMERUS CLINICAL HISTORY: Pain, fall. COMPARISON: No relevant prior studies are available for comparison. TECHNIQUE: 3 views of the left shoulder and 2 views of the left humerus. FINDINGS: Comminuted, displaced and impacted fracture of the proximal left humeral shaft. The distal fragment is displaced by greater than one shaft width and superiorly impacted by approximately 9.5 cm. There is surrounding soft tissue swelling and a joint effusion in the left shoulder. No additional fractures are seen. XR/XR humerus LT IMPRESSION: Comminuted, displaced and impacted fracture of the proximal left humeral shaft. Dictated By: Rachel Carrillo Signed By: Electronically signed by Rachel Carrillo 08/07/23 1256 Radiology Impression Discussion of test interpretation with radiology: I have reviewed the radiologist's reading. Independent Historian Clinical information obtained from an independent historian. History obtained from or confirmed by: Other (patient's daughter provided additional history and confirmed the history provided by the patient.) Critical Care Time Critical Care Time Critical Care Time: Yes Total Critical Care Time: 48 Attestation: I spent 48 minutes of Critical Care Time with this patient. This does not include time spent on separately reported billable procedures. Discharge Plan Discharge Clinical Impression: Fracture, humerus Patient Disposition: Home, Self-Care Instructions: Arm Fracture in Adults (ED), How to Use a Sling (ED) Additional Instructions: There was an incidental finding made on your CT c-spine imaging of posterior subpleural paraseptal emphysematous bullae in the right lung apex. While this may be a benign finding - you must follow up with your primary care provider to discuss it. Make sure to extend your elbow outside of the sling every hour. Follow up with your primary care provider and an orthopedic provider. Return to the emergency department immediately if your symptoms worsen or if you develop any dizziness, shortness of breath, difficulty breathing, chest pain, blurry vision, loss of vision, nausea, vomiting, abdominal pain, fever, chills, back pain, or any other complaints. Prescriptions: No Action cyclobenzaprine 10 mg tablet 10 mg PO TID PRN (Reason: muscle spasm) Qty: 20 0RF lidocaine 4 % adhesive patch,medicated 1 patch topical DAILY PRN (Reason: pain) Qty: 10 0RF Rx Instructions: may leave on for up to 12 hrs hydrocodone-acetaminophen 5-325 mg tablet 1 tab PO Q6H PRN (Reason: pain) Qty: 15 0RF ondansetron 4 mg tablet,disintegrating 4 mg PO Q8H PRN (Reason: nausea and vomiting) Qty: 20 0RF cefuroxime axetil 500 mg tablet 500 mg PO BID 7 Days Qty: 14 0RF Referrals: [facility] [Provider Group] (Call to establish and follow up with an orthopedic provider.) Dara Meneses MD [Primary Care Provider] - Interventions: ED Discharge Assessment Last Done: 08/07/23 14:37 Discharge Date/Time: 08/07/23 14:39 Print Language: [place]
--- NOTE | 2023-08-07 12:02 | PC.NURSE ---
Provider to bedside for primary eval.
[2023-08-07] MEDS: Meclizine HCl 25 MG TABLET PO (12:16)
[2023-08-07] MEDS: oxyCODONE HCl Immed Release 5 MG TABLET 10 MG PO (12:16)
[2023-08-07 14:28] VITALS: BP 149/60; PULSE 86; RESP 12; TEMP 37; O2SAT 96
[2023-08-07 14:37] VITALS: BP 149/60; PULSE 86; RESP 14; TEMP 37; O2SAT 96
== END 2023-08-07 14:39 | disposition home or self-care (01) ==
PROVIDERS: Emergency Provider Student in an Organized Health Care Education/Training Program; PCP Internal Medicine
DX: S42.302A Unspecified fracture of shaft of humerus, left arm, initial encounter for closed fracture (principal); S09.90XA Unspecified injury of head, initial encounter; M54.2 Cervicalgia; R51.9 Headache, unspecified; M25.512 Pain in left shoulder; W01.10XA Fall on same level from slipping, tripping and stumbling with subsequent striking against unspecified object, initial encounter; Y93.9 Activity, unspecified; Y92.000 Kitchen of unspecified non-institutional (private) residence as the place of occurrence of the external cause; Y99.8 Other external cause status
CPT/HCPCS: 29105; 70450; 72125; 73030; 73060; 99284

== ENCOUNTER 2023-08-14 08:10 | Outpatient (REF) | payer OTHER, SELFPAY ==
--- NOTE | ~2023-08-14 | XR_ITS ---
EXAMINATION: XR SHOULDER, LEFT CLINICAL INFORMATION: Pain in the left shoulder COMPARISON: X-rays of the left shoulder and humerus 08/07/2023 TECHNIQUE: 2 views of the left shoulder. FINDINGS: There is redemonstration of the comminuted severely displaced mildly angulated fracture the proximal metadiaphysis of the humerus. There is somewhat improved compared with the prior examination along for differences in projection, with less prominent proximal displacement of the distal fragment.. There is a large butterfly fragment present posterior laterally. There is a full shafts width lateral displacement of the distal dominant fragment with minimal anterior displacement of the distal fragment. There is persistent mild cortical subluxation of the humeral head The acromioclavicular joint is normal. The surrounding bone and soft tissues are unremarkable XR/XR shoulder LT min 2V IMPRESSION: Slight improved alignment of the comminuted proximal humerus fracture
== END 2023-08-14 08:11 | disposition home or self-care (01) ==
LOC: HO.HOSX 08:10
PROVIDERS: Visit Provider Physician Assistant
DX: S42.292A Other displaced fracture of upper end of left humerus, initial encounter for closed fracture (principal); W19.XXXA Unspecified fall, initial encounter; Y93.9 Activity, unspecified; Y92.9 Unspecified place or not applicable; Y99.9 Unspecified external cause status
CPT/HCPCS: 73030; 99202

== ENCOUNTER 2023-08-14 10:15 | Outpatient (AMB) | payer OTHER, SELFPAY ==
--- NOTE | 2023-08-14 10:25 | A.OFFVIS_ITS ---
Vital Signs 08/14/23 10:38 Height 5 ft 5 in Weight 176 lb BMI 29.3 Intake Visit Reasons: FC- Fracture, humerus, left shoulder Intake Note: Daisy a 73 year old left hand dominant female who presents today for an ER follow up of left shoulder s/p fall on 08/06/23. Patient reports that she tripped and fell landing on her left side on a hardwood floor. She presented to [facility] ER the following day where xrays were taken and placed in a sling. Currently she has a constant pain with a pain level 10 out 10. States her pain feels like an electrical shock and she continues to have swelling down to her hand. Finds little relief with hydrocodone-acetaminophen and icing. Allergies No Known Allergies Allergy (Verified 08/14/23 10:38) HPI HPI FC- Fracture, humerus, left shoulder: Details: 73-year-old left hand dominant female who presents to the office today for an ER follow-up of left shoulder injury after tripping and falling on her left side on a hardwood floor, 08/06/23. She was seen at ER the next day where x-rays were performed and she was placed in a sling. She currently states she has constant pain and electrical shock sensation in her shoulder and rates the pain as 10 on the scale of 0-10. She also reports swelling down to her hand. She finds mild relief with hydrocodone-acetaminophen and icing. [facility] Medical History Hyperlipidemia HTN (hypertension) Kidney stones Anxiety Social History (Updated 08/14/23 @ 10:31 by Felipa Billingsley Mary) Alcohol intake: current Alcohol intake frequency: does not drink Patient Tobacco Use Status: Current everyday Tobacco user Current occupational status: unemployed Current occupation: left hand dominant Review of Systems Const All systems reviewed & are unremarkable except as noted in HPI and below Physical Exam Vital Signs: BMI result Body Mass Index 29.3 Const General: cooperative, healthy appearing, comfortable, no acute distress, well developed and alert Orientation/consciousness: patient oriented x3 HEENT Head: Yes normal to inspection, Yes normocephalic and Yes atraumatic Eyes General: appearance normal, both eyes and all related structures Resp Effort & Inspection: normal respiratory effort and able to speak in complete sentences Cardio Rate: regular rate Peripheral pulses: Peripheral pulses 2+ throughout GI Palpation (GI): Soft to palpation Skin Lesions: no lesions Rashes: no rashes Neuro General: patient oriented x3 Extrem Other: Right shoulder: Normal to inspection. Diffuse Swelling and tenderness over the proximal humerus which extends down the arm. Anterior deltoid sensation intact. Elbow and wrist ROM intact. NVI. Office Procedures Fracture Care Fracture Billing Code: Fracture Billing Code Results Reviewed Results Reviewed: Xrays were obtained in the office today and personally reviewed by me of the left shoulder show Comminuted, displaced and impacted fracture of the proximal left humeral shaft. Assessment & Plan Assessment & Plan (1) Left humeral fracture: Code(s): S42.302A - Unspecified fracture of shaft of humerus, left arm, initial encounter for closed fracture Category: Medical Qualifiers: Encounter type: initial encounter Humerus Location: proximal Fracture type: closed Fracture alignment: displaced Fracture morphology: other fracture Qualified Code(s): S42.292A - Other displaced fracture of upper end of left humerus, initial encounter for closed fracture Plan Images reviewed with Dr. Strong in the office today. The plan is to continue treating this conservatively with a sling. She can come out of the sling to let her arm dangle on her side. No lifting or bringing her hand overhead. She does have a prescription of Vicodin from the ED that she is taking as needed. I would like to see her back in 3 weeks with new x-rays, sooner if needed. Orders: Orders XR shoulder LT min 2V Today M25.512 - Pain in left shoulder Patient Instructions: Scribed for Irma Bernal PA-C, by Vincenzo Mckenzie medical laboratory technicians, on 08/14/2023 at 10:30 AM EST.? I, Irma Bernal PA-C, have personally reviewed and agree with the information entered by the scribe. Coding Level of Care Code New Pt Level 3 (02772) Diagnoses Other closed displaced fracture of proximal end of left humerus, initial encounter S42.292A Encounter type: initial encounter Humerus Location: proximal Fracture type: closed Fracture alignment: displaced Fracture morphology: other fracture CPT Codes Fracture Care - Fracture Billing Code: Fracture Billing Code ([id number])
[2023-08-14 10:38] VITALS: BMI 29.3
== END 2023-08-14 10:56 | disposition home or self-care (01) ==
PROVIDERS: PCP Internal Medicine; Visit Provider Physician Assistant
DX: S42.292A Other displaced fracture of upper end of left humerus, initial encounter for closed fracture (principal)
CPT/HCPCS: 99203

== ENCOUNTER 2023-09-04 12:21 | Outpatient (REF) | payer OTHER, SELFPAY ==
--- NOTE | ~2023-09-04 | XR_ITS ---
EXAMINATION: XR SHOULDER, LEFT CLINICAL INFORMATION: Left shoulder pain. COMPARISON: Most recent left shoulder radiograph dated 08/14/2023. TECHNIQUE: AP and scapular Y views of the left shoulder. FINDINGS: Redemonstration of a comminuted proximal left humeral fracture with improved anatomic alignment when compared to the prior examination. Dominant oblique fracture line through the metaphysis with a lateral butterfly fracture fragment measuring up to 11.6 cm in craniocaudal dimension. No significant new bone/callus formation. No new fracture or dislocation. No joint space narrowing or marginal osteophytes. No osseous erosion. XR/XR shoulder LT min 2V IMPRESSION: Comminuted proximal left humeral fracture with improved anatomic alignment when compared to the prior examination. No significant new bone/callus formation.
== END 2023-09-04 12:22 | disposition home or self-care (01) ==
LOC: HO.HOSX 12:21
PROVIDERS: Visit Provider Physician Assistant
DX: S42.292D Other displaced fracture of upper end of left humerus, subsequent encounter for fracture with routine healing (principal)
CPT/HCPCS: 73030; 99212

== ENCOUNTER 2023-09-04 12:49 | Outpatient (AMB) | payer OTHER, SELFPAY ==
--- NOTE | 2023-09-04 13:03 | A.OFFVIS_ITS ---
Intake Visit Reasons: OV-3 wks lt humeral fx w xrays Intake Note: Daisy a 73 year old left hand dominant female who presents today for a follow up of left humeral fracture, DOI 08/06/23. Xrays updated. Patient reports there isnt as much pain as before.She states she isnt getting the same shocking pain as she was before. She continues to wear sling as directed. Allergies No Known Allergies Allergy (Verified 09/04/23 13:03) HPI HPI OV-3 wks lt humeral fx w xrays: Details: 73-year-old left hand dominant female who returns to the office today for a follow-up of left humeral fracture, 08/06/23. She states she has improvement in her pain and shocking sensation and is doing well overall. He continues to wear her sling as instructed. He has no concerns today. [facility] Medical History Hyperlipidemia HTN (hypertension) Kidney stones Anxiety Social History (Updated 08/14/23 @ 10:31 by Felipa Billingsley [facility]) Alcohol intake: current Alcohol intake frequency: does not drink Patient Tobacco Use Status: Current everyday Tobacco user Current occupational status: unemployed Current occupation: left hand dominant Review of Systems Const All systems reviewed & are unremarkable except as noted in HPI and below Physical Exam Const General: cooperative, healthy appearing, comfortable, no acute distress, well developed and alert Orientation/consciousness: patient oriented x3 HEENT Head: Yes normal to inspection, Yes normocephalic and Yes atraumatic Eyes General: appearance normal, both eyes and all related structures Resp Effort & Inspection: normal respiratory effort and able to speak in complete sentences Cardio Rate: regular rate Peripheral pulses: Peripheral pulses 2+ throughout GI Palpation (GI): Soft to palpation Skin Lesions: no lesions Rashes: no rashes Neuro General: patient oriented x3 Extrem Other: Right shoulder: Normal to inspection. Diffuse Swelling and tenderness over the proximal humerus which extends down the arm. Anterior deltoid sensation intact. Elbow and wrist ROM intact. NVI. Results Reviewed Results Reviewed: Xrays were obtained in the office today and personally reviewed by me of the left shoulder show Comminuted, displaced and impacted fracture of the proximal left humeral shaft. Assessment & Plan Assessment & Plan (1) Left humeral fracture: Code(s): S42.302A - Unspecified fracture of shaft of humerus, left arm, initial encounter for closed fracture Category: Medical Qualifiers: Encounter type: initial encounter Fracture alignment: displaced Fracture morphology: other fracture Fracture type: closed Humerus Location: proximal Qualified Code(s): S42.292A - Other displaced fracture of upper end of left humerus, initial encounter for closed fracture Plan We will continue conservative management and begin a course of physical therapy to work on ROM and periscapular stabilization, no RTC strengthening. She will see me back in 6 weeks with x-rays, sooner if needed. Orders: Orders XR ankle LT min 3V Today M25.572 - Pain in left ankle and joints of left foot XR shoulder LT min 2V Today M25.512 - Pain in left shoulder PT Evaluation and Treatment Today S42.292A - Other displaced fracture of upper end of left humerus, initial encounter for closed fracture Patient Instructions: Scribed for Irma Bernal PA-C, by Vincenzo Mckenzie medical director/head team physician, on 09/04/2023 at 12:45 PM EST.? I, Irma Bernal PA-C, have personally reviewed and agree with the information entered by the scribe. Coding Level of Care Code Global (94336) Diagnoses Other closed displaced fracture of proximal end of left humerus, initial encounter S42.292A Encounter type: initial encounter Fracture alignment: displaced Fracture morphology: other fracture Fracture type: closed Humerus Location: proximal
== END 2023-09-04 13:24 | disposition home or self-care (01) ==
PROVIDERS: PCP Internal Medicine; Visit Provider Physician Assistant
DX: S42.292A Other displaced fracture of upper end of left humerus, initial encounter for closed fracture (principal)
CPT/HCPCS: 99213

== ENCOUNTER 2023-10-19 09:33 | Outpatient (REF) | payer OTHER, SELFPAY ==
--- NOTE | ~2023-10-19 | XR_ITS ---
EXAMINATION: XR SHOULDER, LEFT CLINICAL INFORMATION: Pain in left shoulder COMPARISON: 09/04/2023 TECHNIQUE: Two views of the left shoulder. FINDINGS: Comminuted displaced, angulated and impacted fracture of the left proximal humerus with some callus formation. Given differences in imaging technique, there may be slight increase in the degree of impaction and angulation of the fracture although evaluation is limited on 2 views. The glenohumeral joint and acromioclavicular joints appear intact. XR/XR shoulder LT min 2V IMPRESSION: Comminuted displaced, angulated and impacted fracture of the left proximal humerus with increasing callus formation.
== END 2023-10-19 09:34 | disposition home or self-care (01) ==
LOC: HO.HOSX 09:33
PROVIDERS: Visit Provider Physician Assistant
DX: S42.292D Other displaced fracture of upper end of left humerus, subsequent encounter for fracture with routine healing (principal)
CPT/HCPCS: 73030; 99212

== ENCOUNTER 2023-10-19 10:56 | Outpatient (AMB) | payer OTHER, SELFPAY ==
--- NOTE | 2023-10-19 11:13 | A.OFFVIS_ITS ---
Vital Signs 10/19/23 11:16 Height 5 ft 5 in Weight 176 lb BMI 29.3 Intake Visit Reasons: OV-6wk f/u lt shldr humerus fx w xrays Intake Note: Daisy a 73 year old left hand dominant female who presents today for a follow up of left humeral fracture, DOI 08/06/23. Xrays updated. Patient reports she is doing well, states improvement in her pain since her last visit. She has discontinue use of sling about 2 weeks ago. She has not started PT. Allergies No Known Allergies Allergy (Verified 10/19/23 11:15) Medication List - Last Reconciled 10/19/23 by Irma Bernal PA-C amlodipine 5 mg PO DAILY atorvastatin 40 mg PO DAILY cyclobenzaprine 10 mg PO TID PRN escitalopram oxalate 20 mg PO DAILY lidocaine 4% 1 patch topical DAILY PRN ondansetron 4 mg PO Q8H PRN trazodone 50 mg PO BEDTIME HPI HPI OV-6wk f/u lt shldr humerus fx w xrays: Details: 73-year-old female returns to the office today status post left shoulder humerus fracture. She states she is attempting to return to normal activities but she does continue to have some limitations with bringing her arm overhead. She has not started physical therapy as they were unable to get in touch with the facility. [facility] Medical History Hyperlipidemia HTN (hypertension) Kidney stones Anxiety Social History Alcohol intake: current Alcohol intake frequency: does not drink Patient Tobacco Use Status: Current everyday Tobacco user Current occupational status: unemployed Current occupation: left hand dominant Review of Systems Const All systems reviewed & are unremarkable except as noted in HPI and below Physical Exam Vital Signs: BMI result Body Mass Index 29.3 Const General: cooperative, healthy appearing, comfortable, no acute distress, well developed and alert Orientation/consciousness: patient oriented x3 HEENT Head: Yes normal to inspection, Yes normocephalic and Yes atraumatic Eyes General: appearance normal, both eyes and all related structures Resp Effort & Inspection: normal respiratory effort and able to speak in complete sentences Cardio Rate: regular rate Peripheral pulses: Peripheral pulses 2+ throughout GI Palpation (GI): Soft to palpation Skin Lesions: no lesions Rashes: no rashes Neuro General: patient oriented x3 Extrem Other: Right shoulder: Normal to inspection. Diffuse Swelling and tenderness over the proximal humerus which extends down the arm. Anterior deltoid sensation intact. Elbow and wrist ROM intact. NVI. Results Reviewed Results Reviewed: Xrays were obtained in the office today and personally reviewed by me of the left shoulder show Comminuted, displaced and impacted fracture of the proximal left humeral shaft with callus formation Assessment & Plan Assessment & Plan (1) Left humeral fracture: Code(s): S42.302A - Unspecified fracture of shaft of humerus, left arm, initial encounter for closed fracture Category: Medical Qualifiers: Encounter type: initial encounter Fracture alignment: displaced Fracture morphology: other fracture Fracture type: closed Humerus Location: proximal Qualified Code(s): S42.292A - Other displaced fracture of upper end of left humerus, initial encounter for closed fracture Plan She will continue to increase activities as tolerated. I did put in another referral for physical therapy instructed the importance of working with them to regain some muscle strength. I did explain that she is unlikely to increase any type of mobility. My hope is that she would be able to gain some scapular strength and stability of the shoulder. She will see me back in 8 weeks with x- rays sooner if needed. Orders: Orders PT Evaluation and Treatment Today S42.292A - Other displaced fracture of upper end of left humerus, initial encounter for closed fracture XR shoulder LT min 2V Today M25.512 - Pain in left shoulder Coding Level of Care Code Global (90046) Diagnoses Other closed displaced fracture of proximal end of left humerus, initial encounter S42.292A Encounter type: initial encounter Fracture alignment: displaced Fracture morphology: other fracture Fracture type: closed Humerus Location: proximal
[2023-10-19 11:16] VITALS: BMI 29.3
== END 2023-10-19 11:30 | disposition home or self-care (01) ==
PROVIDERS: PCP Internal Medicine; Visit Provider Physician Assistant
DX: S42.292A Other displaced fracture of upper end of left humerus, initial encounter for closed fracture (principal)
CPT/HCPCS: 99213

== ENCOUNTER 2023-11-26 11:00 | Outpatient (RCR) | payer OTHER, SELFPAY ==
--- NOTE | 2023-11-23 13:47 | MHC.PT.EP ---
[facility] [place] Office [place] Office [place] Office [address] Juwan Burr [address] [phone] F: [phone] F: [phone] F: [phone] F: [phone] Physical Therapy Plan of Care Date of Evaluation: 11/23/23 Date of Surgery: n/a Diagnosis: L humerus fx Assessment: Patient is a 73 year old female presenting to PT s/p L humerus fx. Pt reports onset of pain began July 2023 due to a fall. She presents today with impairments in pain, ROM, strength, posture. Pt's current occupation is retired, with baseline physical activities including reaching, lifting, ADLs. Pt expresses group home goal of reducing pain, and is motivated to work towards this in PT. Clinical presentation today is most consistent with signs and sx associated with L humerus fx and pt will benefit from skilled PT 2 week x 4 weeks to address the following problems and impairments noted upon evaluation: pain, ROM, strength, posture. These problems limit the patient with the following functional activities: reaching, lifting, ADLs. The prescribed treatment plan of care is medically necessary. Co-morbidities of none were identified and taken into considerations of plan of care. Pt was educated on HEP, role of PT, prognosis, POC. Frequency and Duration: The patient will be seen 2 x week x 4 weeks Short Term Goals: Pt will demonstrate improved L shoulder ROM by 20 degrees in 2 weeks. Pt will demonstrate L shoulder MMT strength of 3/5 in 2 weeks. Pt will require less cues for posture during the session in 2 weeks. [facility] Goals: Pt will demonstrate improved SPADI score by 13 points in 4 weeks for improved functional mobility. Pt will demonstrate ability to dress herself with min to no pain/difficulty in 4 weeks for return to PLOF. Pt will demonstrate L shoulder MMT strength at least 4-/5 in 4 weeks for improved tolerance to ADLs. Treatment Plan: Modalities to reduce pain, spasms and effusion. Manual therapy to restore motion and function. Therapeutic exercise to improve strength and flexibility. Neuromuscular re-education for posture and balance. Therapeutic activities to return to functional activities of daily living. Electronically signed by: Liz Hamilton, PT, DPT, ATC Please sign and return to therapist. Thank you for your referral.
--- NOTE | 2023-12-28 07:09 | MHC.PT.DC ---
[facility] [place] Office [place] Office [place] Office [address]r [address] [phone] F: [phone] F: [phone] F: [phone] F: [phone] Physical Therapy Discharge Report Diagnosis: L humerus fx Date of Surgery: n/a Date of Evaluation: 11/23/23 Date of Discharge: 12/28/23 Treatments to Date: 2 Cancellations to Date: 3 No Shows to Date: 0 Discharge Status: Discharge Summary: Pt has not attended skilled PT in >30 days and therefore to be d/c. Electronically signed by: Liz Hamilton, PT, DPT, ATC Please sign and return to therapist. Thank you for your referral.
== END 2023-12-28 07:09 | disposition home or self-care (01) ==
LOC: HO.PTCHIC 11:00
PROVIDERS: PCP Internal Medicine; Visit Provider Physician Assistant
DX: S42.292D Other displaced fracture of upper end of left humerus, subsequent encounter for fracture with routine healing (principal)
CPT/HCPCS: 97110; 97140; 97161

== ENCOUNTER 2023-12-18 09:06 | Outpatient (REF) | payer OTHER, SELFPAY ==
--- NOTE | ~2023-12-18 | XR_ITS ---
EXAMINATION: XR SHOULDER, LEFT CLINICAL INFORMATION: M25.512 - Pain in left shoulder COMPARISON: None available. TECHNIQUE: AP external rotation, Grashey, scapular Y, and axillary views of the left shoulder. FINDINGS: Redemonstration of comminuted, displaced, and impacted fracture of the proximal left humeral metadiaphysis. Degree of anterolateral displacement is unchanged and appears similar. 2.0 cm override is similar. Worsening varus angulation of the main distal fracture fragment is present, previously measuring 27 degrees, currently measuring 35 degrees. Redemonstration of bony callus formation at the fracture margins and abutting the fragments, similar with minimal increase in incorporation. No discrete soft tissue abnormality. XR/XR shoulder LT min 2V IMPRESSION: 1. Comminuted, displaced, and impacted fracture of the proximal left humeral metadiaphysis, with evidence of bony callus formation at fracture margins. 2. There is worsening varus angulation of the fracture fragment. 3. There is similar displacement and override. Electronically signed by: Krzysztof Palacios MD 02/28/2024 08:56 PM [facility]
== END 2023-12-18 09:07 | disposition home or self-care (01) ==
LOC: HO.XRAY 09:06
PROVIDERS: Visit Provider Physician Assistant
DX: S42.292A Other displaced fracture of upper end of left humerus, initial encounter for closed fracture (principal)
CPT/HCPCS: 73030; 99212

== ENCOUNTER → 2023-12-18 09:14 | Outpatient (BNV) | payer OTHER, SELFPAY | PROVIDERS: Visit Provider Radiology Diagnostic Radiology | DX: S42.352P Displaced comminuted fracture of shaft of humerus, left arm, subsequent encounter for fracture with malunion (principal) | CPT/HCPCS: 73030 ==

== ENCOUNTER 2023-12-18 09:34 | Outpatient (AMB) | payer OTHER, SELFPAY ==
--- NOTE | 2023-12-18 09:38 | MHC.OFFVIS ---
Vital Signs 12/18/23 09:44 Height 5 ft 5 in Weight 176 lb BMI 29.3 Intake Visit Reasons: OV-8wk f/u lt humeral fx w xrays Intake Note: Daisy a 73 year old left hand dominant female who presents today for a follow up of left humeral fracture, DOI 08/06/23. Xrays updated. Patient reports she is doing well, she expresses concerns of ongoing swelling. She has discontinued outpatient therapy and has been doing her exercises at home. She will have pain and catching with arm movements. Allergies No Known Allergies Allergy (Verified 12/18/23 09:48) Medication List - Last Reconciled 12/18/23 by Irma Bernal PA-C amlodipine 5 mg PO DAILY atorvastatin 40 mg PO DAILY cyclobenzaprine 10 mg PO TID PRN escitalopram oxalate 20 mg PO DAILY lidocaine 4% 1 patch topical DAILY PRN ondansetron 4 mg PO Q8H PRN trazodone 50 mg PO BEDTIME HPI HPI OV-8wk f/u lt humeral fx w xrays: Details: 73-year-old left hand dominant female who returns to the office today for a follow-up of left humeral fracture, 08/06/23. She continues to have swelling in her arm as well as pain and catching with certain arm movements. She also experiences difficulty with brushing her teeth and shakiness with writing. She has discontinued outpatient therapy and has been doing exercises at home. She has no other concerns today. [facility] Medical History Hyperlipidemia HTN (hypertension) Kidney stones Anxiety Social History Alcohol intake: current Alcohol intake frequency: does not drink Patient Tobacco Use Status: Current everyday Tobacco user Current occupational status: unemployed Current occupation: left hand dominant Review of Systems Const All systems reviewed & are unremarkable except as noted in HPI and below Physical Exam Vital Signs: BMI result Body Mass Index 29.3 Const General: cooperative, healthy appearing, comfortable, no acute distress, well developed and alert Orientation/consciousness: patient oriented x3 HEENT Head: Yes normal to inspection, Yes normocephalic and Yes atraumatic Eyes General: appearance normal, both eyes and all related structures Resp Effort & Inspection: normal respiratory effort and able to speak in complete sentences Cardio Rate: regular rate Peripheral pulses: Peripheral pulses 2+ throughout GI Palpation (GI): Soft to palpation Skin Lesions: no lesions Rashes: no rashes Neuro General: patient oriented x3 Extrem Other: Right shoulder: Normal to inspection. No significant swelling or tenderness over the proximal humerus which extends down the arm. Anterior deltoid sensation intact. Elbow and wrist ROM intact. NVI. Results Reviewed Results Reviewed: Xrays were obtained today and personally reviewed by me of the left shoulder show Comminuted, displaced and impacted fracture of the proximal left humeral shaft with callus formation Assessment & Plan Assessment & Plan (1) Left humeral fracture: Code(s): S42.302A - Unspecified fracture of shaft of humerus, left arm, initial encounter for closed fracture Category: Medical Qualifiers: Encounter type: initial encounter Fracture alignment: displaced Fracture morphology: other fracture Fracture type: closed Humerus Location: proximal Qualified Code(s): S42.292A - Other displaced fracture of upper end of left humerus, initial encounter for closed fracture Plan I did explain the extent of her injury and explained that she may be reaching functional capacity level that will limit her function overhead and strength. She will continue working on home exercises and increase activities as tolerated. She will see me back as needed. ? Orders: Orders XR shoulder LT min 2V Today M25.512 - Pain in left shoulder Patient Instructions: Scribed for Irma Bernal PA-C, by Vincenzo Mckenzie emergency medicine medical director, on 12/18/2023 at 9:30 AM EST.? I, Irma Bernal PA-C, have personally reviewed and agree with the information entered by the scribe. Coding Level of Care Code Est Pt Level 3 (98641) Complex EM visit Add On G2211 Diagnoses Other closed displaced fracture of proximal end of left humerus, initial encounter S42.292A Encounter type: initial encounter Fracture alignment: displaced Fracture morphology: other fracture Fracture type: closed Humerus Location: proximal
[2023-12-18 09:44] VITALS: BMI 29.3
== END 2023-12-18 11:02 | disposition home or self-care (01) ==
PROVIDERS: PCP Internal Medicine; Visit Provider Physician Assistant
DX: S42.292A Other displaced fracture of upper end of left humerus, initial encounter for closed fracture (principal)
CPT/HCPCS: 99213